=== PATIENT | male | born 1950 | race Caucasian/White ===

== ENCOUNTER → 2016-12-29 | Outpatient (CLI) | payer OTHER ==
[~2016-12-29] MED LIST: IOHEXOL 350 MG/ML 100 ML (OMNIPAQUE 350) VIAL IV ONE; NS 100 ML (IVPB) BAG IV ONE
[2016-12-29 11:38] LABS: BLOOD UREA NITROGEN 12 MG/DL (7-18); BUN/CREATININE RATIO 15; CREATININE SERUM 0.82 MG/DL (0.60-1.30); GFR ESTIMATED > 60
--- NOTE | 2016-12-29 13:49 | Diagnostic Imaging Report ---
CLINICAL INDICATION: Patient with difficulty swallowing, 2 masses in mid trachea area x3-6 months which are marked with BB. EXAM: CT scan of the neck performed with 75 cc of Omnipaque 350 IV contrast. Coronal reformatted images are created. COMPARISON: None. FINDINGS: There is no significant neck soft tissue abnormality seen beneath the left neck skin marker. The left sternocleidomastoid muscle is seen beneath the left neck skin marker with no significant abnormality seen in the region. The nasopharynx, oropharynx, hypopharynx, and laryngeal structures are unremarkable. The thyroid gland is unremarkable, and the bilateral salivary glands are unremarkable. The visualized portions of the tongue and sublingual and submandibular regions are unremarkable. The neck vascular structures are patent and unremarkable. Visualized intracranial structures are unremarkable. There is emphysematous disease of the visualized upper lungs. 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 There is minimal mucosal thickening involving both maxillary sinuses. Temporal bone structures show no significant abnormality. IMPRESSION: 1: There is no neck soft tissue mass, lymphadenopathy, or fluid collections. There is no significant abnormality seen adjacent to the left neck skin markers. The normal-appearing left sternocleidomastoid muscle is seen beneath the left neck skin marker. 2: Emphysematous lung disease. 3: The remainder of the neck CT scan is unremarkable for patient's age. Dictated by: Dictated on workstation # [id number]
== END ==
LOC: RAD 10:57
DX: R22.1 Localized swelling, mass and lump, neck (principal); J43.9 Emphysema, unspecified
CPT/HCPCS: 36415; 70491; 82565; 84520

== ENCOUNTER → 2018-04-12 | Outpatient (CLI) | payer OTHER ==
--- NOTE | 2018-04-12 11:52 | Diagnostic Imaging Report ---
PROCEDURE: CT chest without contrast. TECHNIQUE: Multiple contiguous axial images were obtained through the chest without the use of intravenous contrast. INDICATION: Constant coughing, [id number] smoker, no priors. There is a heavily calcified benign subpleural nodule in the right lower lobe consistent with incidental granuloma. No noncalcified or suspicious pulmonary mass. There is no pathological appearing thoracic lymph nodes. There is no effusion or pneumothorax. No bronchiectasis, blebs, bullous disease or air cyst were found. There is no pneumonia or evidence for edema. No acute soft tissue or osseous chest wall pathology. Upper abdomen revealed no acute finding. IMPRESSION: Benign granulomatous disease. No suspicious mass, failure, infiltrate effusion or other acute/suspicious findings. Dictated by: Dictated on workstation # [id number]
== END ==
LOC: RAD 10:36
PROVIDERS: ATTEND Nurse Practitioner Family
DX: D71 Functional disorders of polymorphonuclear neutrophils (principal); F17.210 Nicotine dependence, cigarettes, uncomplicated
CPT/HCPCS: 71250

== ENCOUNTER → 2019-11-08 | Outpatient (CLI) | payer OTHER ==
[~2019-11-08] MED LIST changes: +CATHETER FLUSH 10 ML SYR IV PRN; +HOLD METFORMIN - RECEIVED CONTRAST 20 ML VIAL IV SCH
[2019-11-08 10:22] LABS: ALBUMIN 4.4 GM/DL (3.2-4.5); BUN/CREATININE RATIO 11; CARBON DIOXIDE 27 MMOL/L (21-32); CHLORIDE 107 MMOL/L (98-107); CREATININE SERUM 0.93 MG/DL (0.60-1.30); GFR ESTIMATED > 60; GLUCOSE 96 MG/DL (70-105); PHOSPHORUS 2.4 MG/DL (2.3-4.7); POTASSIUM 4.2 MMOL/L (3.6-5.0); SODIUM 139 MMOL/L (135-145)
--- NOTE | 2019-11-08 12:30 | Diagnostic Imaging Report ---
PROCEDURE: CT neck soft tissue with contrast. TECHNIQUE: Multiple contiguous axial images were obtained through the neck after the administration of contrast. Auto Exposure Controls were utilized during the CT exam to meet ALARA standards for radiation dose reduction. INDICATION: Left-sided neck mass. COMPARISON: This study is compared with a soft tissue neck CT 12/29/2016. FINDINGS: A surface marker is placed in the left neck at the same level of its previous placement in 2017 superficial to the nonfocal left sternocleidomastoid muscle. No underlying mass or fluid collection is found. There is no cervical lymphadenopathy. The nasopharynx, oropharynx, and hypopharynx appeared normal. Retropharyngeal and prevertebral spaces are normal. Free edge of the epiglottis is normal. The infralaryngeal trachea is patent. The thoracic inlet, pulmonary apices are nonacute. No bony destructive process. Parotid, submandibular, and thyroid glands are unremarkable. The thyroid noted to be somewhat small but nonfocal. No bony destructive process. No fracture. The orbits and visualized sinuses are nonacute. IMPRESSION: Stable unremarkable soft tissue neck CT. No underlying mass, adenopathy, fluid collection, or acute abnormalities. Dictated by: Dictated on workstation # [id number]
== END ==
LOC: RAD 09:37
PROVIDERS: ATTEND Nurse Practitioner Family
DX: J44.9 Chronic obstructive pulmonary disease, unspecified (principal); E78.5 Hyperlipidemia, unspecified; R69 Illness, unspecified; R22.1 Localized swelling, mass and lump, neck; Z72.0 Tobacco use
CPT/HCPCS: 36415; 70491; 80069